=== PATIENT | male | born 1975 | race Caucasian/White ===

== ENCOUNTER → 2025-01-20 | Outpatient (CLI) | payer OTHER, SELFPAY ==
--- NOTE | 2025-01-20 10:20 | RAD_ITS ---
EXAM: XR Chest, 2 Views CLINICAL INDICATION: CHRONIC BRONCHITIS TECHNIQUE: Frontal and lateral views of the chest. COMPARISON: No relevant prior studies available. FINDINGS: LUNGS AND PLEURAL SPACES: Unremarkable. No consolidation. No pneumothorax. HEART: Unremarkable. No cardiomegaly. MEDIASTINUM: Unremarkable. Normal mediastinal contour. BONES/JOINTS: Unremarkable. No acute fracture. RAD/Chest PA and Lateral IMPRESSION: No acute cardiopulmonary process. Reading Location[facility]
== END | disposition home or self-care (01) ==
LOC: PSN 09:24
PROVIDERS: Referring Provider Chiropractor; Visit Provider Chiropractor
DX: J42 Unspecified chronic bronchitis (principal)
CPT/HCPCS: 71046; 94060; 94726; 94729

== ENCOUNTER → 2025-05-11 | Outpatient (CLI) | payer OTHER, SELFPAY ==
--- NOTE | 2025-05-11 14:55 | NEURO ---
NCS and/or EMG Patient Report Ordering Doctor: Candido Raymundo DATE OF SERVICE: 05/11/25 Taz presents with complaints of pain around the left shoulder. Electrodiagnostic findings: Left median motor nerve demonstrates normal distal latency and amplitude with borderline reduced conduction velocity. Left ulnar motor response within normal limits. Sensory responses are within normal limits. Needle EMG testing was performed in the left upper limb. All muscles tested showed no evidence of denervation with normal motor unit action potentials. Electrodiagnostic impression: This is a normal electrodiagnostic study of the left upper limb. There is no electrodiagnostic evidence for peripheral neuropathy or cervical radiculopathy Multi Select Codes Neurology Neurology Interp Codes: 59174-68 Musc test done w/n test comp (interp) and 86685-38 Nrv cndj test 7-8 studies (interp)
--- NOTE | 2025-05-11 14:55 | NEURO ---
NCS and/or EMG Patient Report Ordering Doctor: Candido Raymundo DATE OF SERVICE: 05/11/25 Taz presents with complaints of pain around the left shoulder. Electrodiagnostic findings: Left median motor nerve demonstrates normal distal latency and amplitude with borderline reduced conduction velocity. Left ulnar motor response within normal limits. Sensory responses are within normal limits. Needle EMG testing was performed in the left upper limb. All muscles tested showed no evidence of denervation with normal motor unit action potentials. Electrodiagnostic impression: This is a normal electrodiagnostic study of the left upper limb. There is no electrodiagnostic evidence for peripheral neuropathy or cervical radiculopathy Multi Select Codes Neurology Neurology Interp Codes: 66688-97 Musc test done w/n test comp (interp) and 32026-50 Nrv cndj test 7-8 studies (interp)
== END | disposition home or self-care (01) ==
PROVIDERS: Referring Provider Orthopaedic Surgery Sports Medicine; Visit Provider Orthopaedic Surgery Sports Medicine
DX: M25.512 Pain in left shoulder (principal); M25.812 Other specified joint disorders, left shoulder
CPT/HCPCS: 95886; 95910